=== PATIENT | male | born 1975 ===

== ENCOUNTER 2019-05-14 16:40 | Emergency (ER) | payer SELFPAY ==
[2019-05-14] MEDS ORDERED: Sodium Chloride 0.9% 10 ML Syringe FLUSH PRN (17:34)
[2019-05-14] MEDS: Sodium Chloride 0.9% 1,000 ML IV SCH (17:58)
[2019-05-14 18:01] LABS: CHLORIDE,CL 102 mmol/L (98-107); SODIUM,NA 138 mmol/L (136-145)
--- NOTE | 2019-05-14 18:19 | EDM.PDOC ---
ED HPI GENERAL MEDICAL PROBLEM - General Chief Complaint: Abdominal Pain Stated Complaint: nausea Time Seen by Provider: 05/14/19 16:50 Source of Information: Reports: Patient, RN History Limitations: Reports: No Limitations - History of Present Illness INITIAL COMMENTS - FREE TEXT/NARRATIVE: Patient is a 44-year-old gentleman who is known to be an alcoholic has been dry for about a year started drinking again about 3 days ago. About start his stomach was upset felt that he had some gastritis and has continued to today he has noted stools have changed in color and appearance. Onset: Gradual Duration: Day(s): Location: Reports: Abdomen Quality: Reports: Ache, Dull Severity: Mild Improves with: Reports: None Worsens with: Reports: None Context: Reports: Other Treatments [employer]OR VEHICLE [employer]ER: Reports: Other (see below) Other Treatments [employer]OR [employer]HICLE [employer]ER: Nexium Abdomen Pain Score (Numeric/FACES): 0 - Related Data Allergies Allergy/AdvReac Type Severity Reaction Status Date / Time No Known Allergies Allergy Verified 05/14/19 16:58 Home Meds: Home Meds Esomeprazole Magnesium [Nexium] 20 mg PO ASDIRECTED 05/14/19 [History] Esomeprazole Magnesium [Nexium] 40 mg PO BID 30 Days #60 capsule. 05/14/19 [Rx ] Past Medical History HEENT History: Reports: Impaired Vision Other HEENT History: lost his glasses 2 days ago; Cardiovascular History: Reports: Hypertension Other Cardiovascular History: has had HTN, was on medication but ran out and did not go back for refill. Gastrointestinal History: Reports: GI Bleed, Other (See Below) Other Gastrointestinal History: hx bleeding ulcers x 3 Neurological History: Reports: Migraines Other Neuro History: migraines in early twenties "that also disappeared" Psychiatric History: Reports: Addiction Hematologic History: Reports: Blood Transfusion(s) Other Hematologic History: blood transfusions frelated to bleeding ulcers - Infectious Disease History Infectious Disease History: Reports: Chicken Pox - Past Surgical History GI Surgical History: Reports: Colonoscopy, EGD Neurological Surgical History: Reports: None Social & Family History - Family History Family Medical History: Noncontributory - Tobacco Use Smoking Status *Q: Never Smoker Second Hand Smoke Exposure: No - Caffeine Use Caffeine Use: Reports: Energy Drinks Other Caffeine Use: 1 -2 /week - Alcohol Use Days Per Week of Alcohol Use: 7 Number of Drinks Per Day: 9 Total Drinks Per Week: 63 Date of Last Drink: 05/14/19 Time of Last Drink: 16:00 - Recreational Drug Use Recreational Drug Use: Yes Drug Use in Last 12 Months: Yes Recreational Drug Type: Reports: Methamphetamine Recreational Drug Use Frequency: Daily Recreational Drug Last Use: last week ED ROS GENERAL - Review of Systems Review Of Systems: See Below Constitutional: Reports: Decreased Appetite HEENT: Reports: No Symptoms Respiratory: Reports: No Symptoms Cardiovascular: Reports: No Symptoms Endocrine: Reports: No Symptoms GI/Abdominal: Reports: Diarrhea : Reports: No Symptoms Musculoskeletal: Reports: No Symptoms Skin: Reports: No Symptoms Neurological: Reports: No Symptoms Psychiatric: Reports: No Symptoms Hematologic/Lymphatic: Reports: No Symptoms Immunologic: Reports: No Symptoms ED EXAM, GI/ABD - Physical Exam Exam: See Below Exam Limited By: Intoxication General Appearance: Alert, WD/WN, No Apparent Distress Eyes: Bilateral: Normal Appearance, EOMI Ears: Normal External Exam, Normal Canal, Hearing Grossly Normal, Normal TMs Nose: Normal Inspection, Normal Mucosa, No Blood Throat/Mouth: Normal Inspection, Normal Lips, Normal Teeth, Normal Gums, Normal Oropharynx, Normal Voice, No Airway Compromise Head: Atraumatic, Normocephalic Neck: Normal Inspection, Supple, Non-Tender, Full Range of Motion Respiratory/Chest: No Respiratory Distress, Lungs Clear, Normal Breath Sounds, No Accessory Muscle Use, Chest Non-Tender Cardiovascular: Normal Peripheral Pulses, Regular Rate, Rhythm, No Edema, No Gallop, No JVD, No Murmur, No Rub GI/Abdominal Exam: Normal Bowel Sounds, Soft, No Organomegaly, Distended, Tender (Male) Exam: Deferred Rectal (Males) Exam: Heme - Stool Back Exam: Decreased Range of Motion Extremities: Normal Inspection, Normal Range of Motion, Non-Tender, Normal Capillary Refill, No Pedal Edema Neurological: Alert, Oriented, CN II-XII Intact, Normal Cognition, Normal Gait, Normal Reflexes, No Motor/Sensory Deficits Psychiatric: Normal Affect, Normal Mood Skin Exam: Warm, Dry, Intact, Normal Color, No Rash Lymphatic: No Adenopathy Course - Vital Signs Last Recorded V/S: Last Vital Signs Temp 97.6 F 05/14/19 16:52 Pulse 85 05/14/19 16:52 Resp 20 05/14/19 16:52 BP 150/110 H 05/14/19 17:35 Pulse Ox 95 05/14/19 16:52 - Orders/Labs/Meds Orders: Active Orders 24 hr Category Date Time Status Influenza Vaccine Charge [RC] .DISCHARGE Care 05/14/19 17:49 Active Chest 2V [CR] Stat Exams 05/14/19 17:36 Ordered CULTURE BLOOD [BC] Stat Lab 05/14/19 17:34 Ordered Sodium Chloride 0.9% @ 150 MLS/HR (1000ml) Med 05/14/19 17:45 Ordered Sodium Chloride 0.9% [Normal Saline] 1,000 ml IV ASDIRECTED Sodium Chloride 0.9% [Saline Flush] Med 05/14/19 17:34 Ordered 10 ml FLUSH ASDIRECTED PRN Saline Lock Insert [OM.PC] Stat Oth 05/14/19 17:34 Ordered Medication Orders Sodium Chloride (Normal Saline) 1,000 mls @ 150 mls/hr IV ASDIRECTED REMI Last Admin: 05/14/19 17:58 Dose: 150 mls/hr Sodium Chloride (Saline Flush) 10 ml FLUSH ASDIRECTED PRN PRN Reason: Keep Vein Open Labs: Laboratory Tests 05/14/19 05/14/19 Range/Units 17:35 17:35 WBC 9.4 (4.0-10.2) K/uL RBC 5.45 H (4.33-5.41) M/uL Hgb 16.3 (13.1-16.8) g/dL Hct 47.4 (39.0-49.0) % MCV 87.0 (84.0-98.0) fL MCH 29.9 (28.2-33.3) pg MCHC 34.4 (31.7-36.0) g/dL RDW 13.0 (11.2-14.1) % Plt Count 261 (150-350) K/uL Neut % (Auto) 70.4 (45.0-80.0) % Lymph % (Auto) 18.4 (10.0-50.0) % [place] % (Auto) 10.1 (2.0-14.0) % Eos % (Auto) 0.6 (0.0-5.0) % Baso % (Auto) 0.5 (0.0-2.0) % Neut # (Auto) 6.58 (1.40-7.00) K/uL Lymph # (Auto) 1.72 (0.50-3.50) K/uL [place] # (Auto) 0.94 (0.00-1.00) K/uL Eos # (Auto) 0.06 (0.00-0.50) K/uL Baso # (Auto) 0.05 (0.00-0.20) K/uL Sodium 138 (136-145) mmol/L Potassium 3.8 (3.5-5.1) mmol/L Chloride 102 (98-107) mmol/L Carbon Dioxide 20.9 L (21.0-32.0) mmol/L BUN 20 H (7-18) mg/dL Creatinine 1.02 (0.51-1.17) mg/dL Est Cr Clr Drug Dosing 90.49 mL/min Estimated GFR (MDRD) > 60 mL/min Glucose 129 H (74-106) mg/dL Calcium 7.9 L (8.5-10.1) mg/dL Total Bilirubin 0.7 (0.2-1.0) mg/dL AST 36 (15-37) U/L ALT 53 (12-78) U/L Alkaline Phosphatase 96 (46-116) IU/L Total Protein 7.7 (6.4-8.2) g/dL Albumin 3.8 (3.4-5.0) g/dL Meds: Medications Generic Name Dose Route Start Last Admin Trade Name Freq PRN Reason Stop Dose Admin Sodium Chloride 1,000 mls @ 150 mls/hr 05/14/19 17:45 05/14/19 17:58 Normal Saline IV 150 mls/hr ASDIRECTED REMI Administration Sodium Chloride 10 ml 05/14/19 17:34 Saline Flush FLUSH ASDIRECTED PRN Keep Vein Open Discontinued Medications Generic Name Dose Route Start Last Admin Trade Name Freq PRN Reason Stop Dose Admin Influenza Virus Vaccine 1 each 05/14/19 17:49 Pharmacy To Dose - Influenza Vaccine IM 05/14/19 17:50 ONETIME ONE Influenza Virus Vaccine 60 mcg 05/14/19 18:00 Fluzone Quad [id number] Syringe IM 05/14/19 18:01 .ONCE ONE Departure - Departure Time of Disposition: 18:25 Disposition: Home, Self-Care 01 Condition: Fair Clinical Impression: Gastritis and duodenitis - Discharge Information *PRESCRIPTION DRUG MONITORING PROGRAM REVIEWED*: No *COPY OF PRESCRIPTION DRUG MONITORING REPORT IN PATIENT PARMINDER: No Instructions: Peptic Ulcer, [id number], Duodenitis Referrals: PCP,Unknown [Primary Care Provider] - Care Plan Goals: At this time CBC is within normal limits hemoglobin is 16 I will send him home with Prilosec 40 mg twice a day for 14 days he is to see somebody in about 2 weeks thank you very much - My Orders Last 24 Hours: My Active Orders 05/14/19 17:34 CULTURE BLOOD [BC] Stat Sodium Chloride 0.9% [Saline Flush] 10 ml FLUSH ASDIRECTED PRN Saline Lock Insert [OM.PC] Stat 05/14/19 17:36 Chest 2V [CR] Stat 05/14/19 17:45 Sodium Chloride 0.9% @ 150 MLS/HR (1000ml) Sodium Chloride 0.9% [Normal Saline] 1,000 ml IV ASDIRECTED 05/14/19 17:49 Influenza Vaccine Charge [RC] .DISCHARGE - Assessment/Plan Last 24 Hours: My Active Orders 05/14/19 17:34 CULTURE BLOOD [BC] Stat Sodium Chloride 0.9% [Saline Flush] 10 ml FLUSH ASDIRECTED PRN Saline Lock Insert [OM.PC] Stat 05/14/19 17:36 Chest 2V [CR] Stat 05/14/19 17:45 Sodium Chloride 0.9% @ 150 MLS/HR (1000ml) Sodium Chloride 0.9% [Normal Saline] 1,000 ml IV ASDIRECTED 05/14/19 17:49 Influenza Vaccine Charge [RC] .DISCHARGE
[2019-05-14] MEDS: FLU IM ONE (18:36)
== END 2019-05-14 19:15 | disposition home or self-care (01) ==
LOC: LL.ED 16:40
DX: K29.70 Gastritis, unspecified, without bleeding (principal); K29.80 Duodenitis without bleeding; I10 Essential (primary) hypertension; Z23 Encounter for immunization; Z79.899 Other long term (current) drug therapy
CPT/HCPCS: 36415; 71046; 80053; 82272; 85025; 90471; 90686; 96360; 99284-25; G0008; J7030